=== PATIENT | female | born 1955 | race Caucasian/White ===

== ENCOUNTER 2018-08-17 16:07 | Inpatient (IN) ==
[2018-08-17] MEDS ORDERED: methylPREDNISolone 125 MG/2 ML VIAL IVP ONE (16:18)
[2018-08-17] MEDS ORDERED: Ipratropium/Albuterol Neb 3 ML IH ONE ×2 (16:18→16:19)
--- NOTE | 2018-08-17 16:22 | Emergency Department Note ---
Disposition Clinical Impression: COPD with exacerbation Disposition: Still a Patient General Adult HPI - General Stated complaint: WOODROW Time Seen by Provider: 08/17/18 16:15 Nursing Notes Reviewed: Yes Vital Signs Reviewed: Yes - History of Present Illness HPI Narrative: Attestation note: Patient was seen with the emergency medicine resident/nurse practitioner/physician assistant field hockey coach/transitional resident/medical student: Dr. Niko Johnson I have personally performed a face to face evaluation on this patient. I have reviewed and agree with history and physical examination patient management and disposition. Briefly the salient points of the case are as follows: 63-year-old female history of COPD he is on BiPAP at home O2 comes in with several days of increasing cough shortness of breath sputum and fevers. She is very type and satting 97% on supplemental oxygen patient is getting triple DuoNeb BiPAP screening labs EKG chest x-ray IV steroids. Disposition pending however admission highly anticipated. Providing 45 minutes of critical care service for this patient. - Related Data Allergies Allergy/AdvReac Type Severity Reaction Status Date / Time acetaminophen [From Percocet] AdvReac Hives Verified 02/02/18 10:14 ondansetron [From Zofran] AdvReac Hives Verified 02/02/18 10:14 oxycodone [From Percocet] AdvReac Hives Verified 02/02/18 10:14 promethazine [From Phenergan] AdvReac Hives Verified 02/02/18 10:14 Past Medical History - Past Medical History Medical history: Reports: arthritis, asthma, cancer, COPD, glaucoma, hypertension, migraine Surgical history: Reports: breast surgery, hysterectomy, orthopedic, other Psychiatric history: Reports: depression - Social History Smoking Status: Former smoker Alcohol use: Reports: none Drug use: Reports: none
[2018-08-17] MEDS ORDERED: *HR* Midazolam HCl 2 MG/2 ML VIAL IVP ONE ×2 (16:42→18:35)
--- NOTE | 2018-08-17 16:42 | Emergency Department Note ---
Disposition Clinical Impression: COPD with exacerbation Disposition: Still a Patient General Adult HPI - General Stated complaint: WOODROW Time Seen by Provider: 08/17/18 16:15 Nursing Notes Reviewed: Yes Vital Signs Reviewed: Yes - History of Present Illness HPI Narrative: 63 year old female presents emergency department with concern for shortness of breath. Patient has history COPD and reported asthma. She comes in with a few hours of shortness of breath. Patient states that she is very tight. She also reports cough and sputum production. She states that she feels similar to when she had pneumonia in the past. - Related Data Home Medications Medication Instructions Recorded Confirmed Acetylcysteine 600 mg PO DAILY 08/17/18 08/17/18 [F-[id number]-Cysteine] Albuterol Sulfate [Ventolin Hfa] 2 puff IH Q4H PRN 08/17/18 08/17/18 Amlodipine Besylate 10 mg PO DAILY 08/17/18 08/17/18 Calcium Carbonate [Calcium] 600 mg PO DAILY 08/17/18 08/17/18 Fluticasone Propionate Nasal 1 spr NS DAILY PRN 08/17/18 08/17/18 [Flonase] Glucosamine HCl 500 mg PO DAILY 08/17/18 08/17/18 Ipratropium/Albuterol Neb [Duoneb] 3 ml IH Q6HR PRN 08/17/18 08/17/18 Lisinopril [Zestril] 10 mg PO DAILY 08/17/18 08/17/18 Mometasone Furoate [Asmanex Hfa] 2 puff IH BID 08/17/18 08/17/18 Montelukast [Singulair] 10 mg PO HS 08/17/18 08/17/18 Multivitamin [One-Daily 1 tab PO DAILY 08/17/18 08/17/18 Multi-Vitamin] Olodaterol HCl [Striverdi Respimat] 2 puff IH DAILY 08/17/18 08/17/18 Sertraline [Zoloft] 100 mg PO DAILY 08/17/18 08/17/18 Tizanidine HCl 2 mg PO Q8H PRN 08/17/18 08/17/18 predniSONE [PredniSONE] 20 mg PO DAILY 08/17/18 08/17/18 Allergies Allergy/AdvReac Type Severity Reaction Status Date / Time acetaminophen [From Percocet] AdvReac Hives Verified 08/17/18 17:35 ondansetron [From Zofran] AdvReac Hives Verified 08/17/18 17:35 oxycodone [From Percocet] AdvReac Hives Verified 08/17/18 17:35 promethazine [From Phenergan] AdvReac Hives Verified 08/17/18 17:35 All systems ED: reviewed and negative except as stated. Review of Systems: As Per HPI Constitutional: Reports: fever Cardiovascular: Denies: chest pain Respiratory: Reports: dyspnea, wheezes, sputum production Gastrointestinal: Denies: abdominal pain, nausea, vomiting Musculoskeletal: Denies: back pain Integumentary: Denies: rash Neurological: Denies: headache Past Medical History - Past Medical History Attestation: Yes The following information was validated with the patient. Medical history: Reports: arthritis, asthma, cancer, COPD, glaucoma, hypertension, migraine Surgical history: Reports: breast surgery, hysterectomy, orthopedic, other Psychiatric history: Reports: depression - Social History Smoking Status: Former smoker Alcohol use: Reports: none Drug use: Reports: none Physical Exam - General Limitations: no limitations General appearance: alert, other (Patient appears in moderate respiratory distress) - Head Head exam: normocephalic - Eye Eye exam: Present: EOMI - ENT ENT exam: mucous membranes moist - Neck Neck exam: Present: trachea midline - Chest Chest inspection: Present: symmetric chest wall rise - Respiratory Respiratory exam: Present: normal lung sounds bilaterally, wheezes, accessory muscle use, prolonged expiratory phase - Cardiovascular Cardiovascular exam: Present: normal rhythm, tachycardia, normal heart sounds - Abdominal Exam Abdominal exam: Present: soft, Non-Tender. Absent: distention, guarding, rebound, rigidity - Extremities Exam Extremities exam: Present: normal capillary refill - Back Exam Back exam: Present: full ROM - Neurological Exam Neurological exam: Present: alert, oriented X3 - Psychiatric Psychiatric exam: Present: normal affect, normal mood - Skin Skin exam: Present: warm, dry, intact, normal color. Absent: rash Course Vital Signs Temperature 98.7 F 08/17/18 16:36 Pulse Rate 122 08/17/18 16:36 Respiratory Rate 24 08/17/18 16:36 Blood Pressure 164/114 08/17/18 16:36 O2 Sat by Pulse Oximetry 98 08/17/18 16:36 Temperature 98.7 F 08/17/18 16:36 Pulse Rate 115 08/17/18 20:58 Respiratory Rate 29 08/17/18 20:44 Blood Pressure 165/112 08/17/18 20:58 O2 Sat by Pulse Oximetry 96 08/17/18 20:58 Oxygen Delivery Oxygen Delivery Bipap Medical Decision Making - MDM Narrative Medical decision making narrative: 63-year-old female presents emergency department with concern for COPD exacerbation. Patient initially placed on BiPAP and she was having moderate respiratory distress. Does not given DuoNeb steroids. Patient did well with this. Stated she had improved aeration of her lungs. Patient was persistent tachycardia throughout her stay. Some of this can be attributed to albuterol she was given. Patient's BNP was normal. Her troponin was normal. No ischemic ST changes on the EKG. Chest x-ray did not reveal any evidence of pneumonia however, patient was having cough and sputum production with a mildly elevated white count. She was given Levaquin. Patient be admitted inpatient. She was comfortable on the BiPAP at that time. We did give a bolus of normal saline. She was mildly tachycardic but stable. - Lab Data Result diagrams: 08/17/18 16:35 08/17/18 16:35 Lab Results 08/17/18 08/17/18 08/17/18 Range/Units 16:35 16:35 16:35 WBC 12.6 H (4.3-11.1) K/mcL RBC 4.47 (3.82-4.97) M/mcL Hgb 14.2 (11.5-15.4) g/dL Hct 44.3 (35.3-44.9) % MCV 99.1 (83.0-100.0) fL MCH 31.8 (28.0-33.3) pg MCHC 32.1 (31.6-35.5) g/dL RDW 13.6 (11.5-14.5) % Plt Count 221 (140-400) K/mcL MPV 11.0 (9.4-12.4) fL Immature Gran % 1.0 (0-4) % Seg Neutrophils % 78.9 % Lymphocytes % 13.3 % Monocytes % 5.4 % Eosinophils % 0.9 % Basophils % 0.5 % Neutrophils # 10.0 H (1.6-8.9) K/mcL Lymphocytes # 1.7 (0.6-4.6) K/mcL Monocytes # 0.7 (0.0-1.3) K/mcL Eosinophils # 0.1 (0.0-0.6) K/mcL Basophils # 0.1 (0.0-0.2) K/mcL Sodium 140 (136-145) mEq/L Potassium 4.0 (3.5-5.1) mEq/L Chloride 99 (98-107) mEq/L Carbon Dioxide 26 (23-29) mEq/L BUN 12 (8-23) mg/dL Creatinine 0.48 L (0.60-1.20) mg/dL Est GFR ( Amer) > 60 (> 60) Est GFR (Non-Af Amer) > 60 (> 60) BUN/Creatinine Ratio 25 (6-26) Glucose 173 H (70-105) mg/dL Calculated Osmolality 294 (280-300) Lactic Acid 2.1 (0.5-2.2) mmol/L Calcium 9.6 (8.6-10.3) mg/dL Troponin I < 0.03 (< 0.04) ng/mL B-Natriuretic Peptide (Less than 100) pg/mL 08/17/18 Range/Units 16:35 WBC (4.3-11.1) K/mcL RBC (3.82-4.97) M/mcL Hgb (11.5-15.4) g/dL Hct (35.3-44.9) % MCV (83.0-100.0) fL MCH (28.0-33.3) pg MCHC (31.6-35.5) g/dL RDW (11.5-14.5) % Plt Count (140-400) K/mcL MPV (9.4-12.4) fL Immature Gran % (0-4) % Seg Neutrophils % % Lymphocytes % % Monocytes % % Eosinophils % % Basophils % % Neutrophils # (1.6-8.9) K/mcL Lymphocytes # (0.6-4.6) K/mcL Monocytes # (0.0-1.3) K/mcL Eosinophils # (0.0-0.6) K/mcL Basophils # (0.0-0.2) K/mcL Sodium (136-145) mEq/L Potassium (3.5-5.1) mEq/L Chloride (98-107) mEq/L Carbon Dioxide (23-29) mEq/L BUN (8-23) mg/dL Creatinine (0.60-1.20) mg/dL Est GFR ( Amer) (> 60) Est GFR (Non-Af Amer) (> 60) BUN/Creatinine Ratio (6-26) Glucose (70-105) mg/dL Calculated Osmolality (280-300) Lactic Acid (0.5-2.2) mmol/L Calcium (8.6-10.3) mg/dL Troponin I (< 0.04) ng/mL B-Natriuretic Peptide 35 (Less than 100) pg/mL
[2018-08-17 16:56] LABS: Basophils # 0.1 K/mcL (0.0-0.2); Basophils % 0.5 %; Eosinophils # 0.1 K/mcL (0.0-0.6); Eosinophils % 0.9 %; Hematocrit 44.3 % (35.3-44.9); Hemoglobin 14.2 g/dL (11.5-15.4); Lymphocytes # 1.7 K/mcL (0.6-4.6); Lymphocytes % 13.3 %; Mean Corpuscular HGB Conc 32.1 g/dL (31.6-35.5); Mean Corpuscular Hemoglobin 31.8 pg (28.0-33.3); Mean Corpuscular Volume 99.1 fL (83.0-100.0); Monocytes # 0.7 K/mcL (0.0-1.3); Monocytes % 5.4 %; Platelet Count 221 K/mcL (140-400); Red Blood Count 4.47 M/mcL (3.82-4.97); Red Cell Distribution Width 13.6 % (11.5-14.5); Segmented Neutrophils % 78.9 %
[2018-08-17 17:19] LABS: BUN/Creatinine Ratio 25 (6-26); Blood Urea Nitrogen 12 mg/dL (8-23); Calcium 9.6 mg/dL (8.6-10.3); Carbon Dioxide 26 mEq/L (23-29); Chloride 99 mEq/L (98-107); Glucose 173 mg/dL (70-105); Osmolality,Calculated 294 (280-300); Sodium 140 mEq/L (136-145); Troponin I < 0.03 ng/mL (< 0.04); eGFR For Non-African Americans > 60 (> 60)
[2018-08-17] MEDS ORDERED: 0.9 % Sodium Chloride 1,000 ML IVC ONE (18:35)
[2018-08-17 22:56] LABS: ABG Base Excess 4 mEq/L (-2 to 3); ABG HCO3 31 mEq/L (21-27); ABG Oxygen Saturation 98 % (95-98); ABG PCO2 54 mmHg (35-45); ABG PH 7.36 pH Units (7.32-7.45); ABG PO2 107 mmHg (85-104); ABG TCO2 32 mEq/L (20-26); Blood Gas Modality BiLevel; Blood Gas PEEP 8 cm H2O
[2018-08-17] MEDS ORDERED: Naloxone 0.4 MG/ML INJ IVP PRN (23:16)
[2018-08-17] MEDS ORDERED: Albuterol 2.5 MG/3 ML NEBULIZER IH PRN (23:18)
[2018-08-17] MEDS ORDERED: Fluticasone Propionate Nasal 50 MCG/SPRAY BOTTLE NS PRN (23:22)
[2018-08-17] MEDS: Acetylcysteine 10% 2 ML INHSOL IH SCH (23:46)
[2018-08-17] MEDS: Ipratropium/Albuterol Neb 3 ML IH SCH (23:47)
[2018-08-17] MEDS: 0.9 % Sodium Chloride w KCl 20 MEQ/1,000 ML MLS IVC SCH (23:51)
[2018-08-17] MEDS: Ibuprofen 400 MG TABLET PO PRN (23:51)
[2018-08-17] MEDS: methylPREDNISolone 125 MG/2 ML VIAL IVP SCH (23:51)
[2018-08-17] MEDS: Levofloxacin 750 MG/150 ML 750 MG/150 ML BAG IVPB SCH (23:52)
--- NOTE | 2018-08-18 01:04 | Internal Med History&Physical ---
Date of Encounter: 08/17/18 Time of Encounter: 22:50 Internal Medicine - H&P: HPI Chief complaint: SOB, cough, wheeze Admitted From: Emergency Dept Plans for Post Hospital Care: Home History of present illness: Ms. Brandon is a 63 year old female who presents to the ER tonight complaining of profound dyspnea, coughing, wheezing, and respiratory distress. She came to ER where she was given aerosols and placed on BiPAP immediately for severe respiratory distress/failure. She improved on BiPAP and was subsequently admitted to hospitalist service for COPD exacerbation. Upon my assessment of the patient, she states her symptoms started yesterday and progressively worsened throughout the day today. She has a history of COPD but has never been hospitalized for it before. She is a former smoker and quit about 8 years ago. She denies any fevers, chills, night sweats, vomiting, or diarrhea. She has had multiple ill contacts, however. Although she is quite wheezy and dyspneic, she states she feels much better with BiPAP and after her initial aerosols. Past Med Surg Social Fam HX - Past Medical History Attestation: Yes The following information was validated with the patient. Source: patient, old records reviewed Medical history: arthritis, asthma, cancer, COPD, glaucoma, hypertension, migraine Additional medical history: skin cancer Psychiatric history: depression - Past Surgical History Surgical History: breast surgery, hysterectomy, orthopedic, other Additional surgical history: tosillectomy - Social History Smoking Status: Former smoker Alcohol use: none Drug use: none Current living situation: Home, With Family Activity Level: Independent ambulation Recent Out of Country Travel Within the Last 8 Weeks: No - Family History Mother History Unknown: Yes Father Hx Family Respiratory Disorders: Yes Hx Family Cancer: Yes Internal Medicine - H&P: Meds Acetylcysteine [V-Qgeccp-r-Cysteine] 600 mg PO DAILY 08/17/18 [History] Albuterol Sulfate [Ventolin Hfa] 2 puff IH Q4H PRN 08/17/18 [History] Amlodipine Besylate 10 mg PO DAILY 08/17/18 [History] Calcium Carbonate [Calcium] 600 mg PO DAILY 08/17/18 [History] Fluticasone Propionate Nasal [Flonase] 1 spr NS DAILY PRN 08/17/18 [History] Glucosamine HCl 500 mg PO DAILY 08/17/18 [History] Ipratropium/Albuterol Neb [Duoneb] 3 ml IH Q6HR PRN 08/17/18 [History] Lisinopril [Zestril] 10 mg PO DAILY 08/17/18 [History] Mometasone Furoate [Asmanex Hfa] 2 puff IH BID 08/17/18 [History] Montelukast [Singulair] 10 mg PO HS 08/17/18 [History] Multivitamin [One-Daily Multi-Vitamin] 1 tab PO DAILY 08/17/18 [History] Olodaterol HCl [Striverdi Respimat] 2 puff IH DAILY 08/17/18 [History] Sertraline [Zoloft] 100 mg PO DAILY 08/17/18 [History] Tizanidine HCl 2 mg PO Q8H PRN 08/17/18 [History] predniSONE [PredniSONE] 20 mg PO DAILY 08/17/18 [History] Allergy/AdvReac Type Severity Reaction Status Date / Time acetaminophen [From Percocet] AdvReac Hives Verified 08/17/18 17:35 ondansetron [From Zofran] AdvReac Hives Verified 08/17/18 17:35 oxycodone [From Percocet] AdvReac Hives Verified 08/17/18 17:35 promethazine [From Phenergan] AdvReac Hives Verified 08/17/18 17:35 - Constitutional Constitutional: fatigue, no chills, no fever(s), no night sweats - EENT Eyes: no blurry vision, no change in vision Ears: no ear pain, no tinnitus Nose, mouth and throat: no nasal congestion, no sinus pressure, no sore throat - Cardiovascular Cardiovascular ROS IM: dyspnea, no chest pain, no syncope - Respiratory Respiratory: cough, dyspnea, wheezing, chest congestion, change in phlegm color, no hemoptysis, no excessive phlegm production - Gastrointestinal Gastrointestinal: no abdominal pain, no diarrhea, no hematemesis, no hematochezia, no melena, no vomiting - Genitourinary Genitourinary: no dysuria, no flank pain, no hematuria - Musculoskeletal Musculoskeletal ROS IM: no arthralgias, no back pain - Integumentary Integumentary IM: no rash, no jaundice - Neurological Neurological ROS: no dizziness, no focal weakness, no frequent falls, no headache(s) - Psychiatric Psychiatric: no anxiety, no depression - Endocrine Endocrine IM: no cold intolerance, no heat intolerance, no polydipsia, no polyuria - Allergic/Immunologic Allergic/Immunologic: no GI upset with certain foods - Constitutional Vitals: Temp Pulse Resp BP Pulse Ox 98.7 F 99 21 166/97 100 08/17/18 16:36 08/17/18 23:27 08/17/18 23:52 08/17/18 23:27 08/17/18 23:52 General appearance: Present: cooperative, A&O X 3, pleasant, answers questions appropriately Exam: in moderate respiratory distress, even on BiPap - Head Head exam: Present: atraumatic, normal inspection - Eye Eye exam: Present: EOMI, PERRL. Absent: scleral icterus Pupils: Present: normal accommodation - ENT ENT exam: Present: mucous membranes dry, normal exam, normal oropharynx - Neck Neck exam general surgery: Present: full ROM, supple, trachea midline. Absent: lymphadenopathy, tenderness, nuchal rigidity, thyromegaly - Respiratory Respiratory exam: Present: accessory muscle use, prolonged expiratory phase, respiratory distress, wheezes, tachypnea. Absent: chest wall tenderness, rales, rhonchi - Cardiovascular Cardiovascular exam: Present: distant heart sounds, RRR, +S1, +S2, tachycardia. Absent: diastolic murmur, systolic murmur - GI/Abdominal GI/Abdominal exam: Present: normal bowel sounds, soft. Absent: guarding, hepatomegaly, mass, rebound, splenomegaly, tenderness - Extremities Exam Extremities exam: Present: full ROM, normal capillary refill, warm, radial pulses palpable and symmetrical. Absent: calf tenderness, joint swelling, pedal edema, tenderness - Back Exam Back exam: Absent: CVA tenderness (L), CVA tenderness (R) - Neurological Exam Neurological exam: Present: alert, CN II-XII intact, oriented X3, no focal deficits, strengths equal and symetr throughout - Psychiatric Psychiatric exam: Present: normal affect, normal mood - Skin Skin exam: Present: dry, intact, warm Internal Med - H&P Results - Labs CBC & Chem 7: 08/17/18 16:35 08/17/18 16:35 Labs: Short CBC 08/17/18 Range/Units 16:35 WBC 12.6 H (4.3-11.1) K/mcL Hgb 14.2 (11.5-15.4) g/dL Hct 44.3 (35.3-44.9) % Plt Count 221 (140-400) K/mcL Neutrophils # 10.0 H (1.6-8.9) K/mcL BMP 08/17/18 16:35 Sodium 140 Potassium 4.0 Chloride 99 Carbon Dioxide 26 BUN 12 Creatinine 0.48 L Glucose 173 H Calcium 9.6 Cardiac Enzymes 08/17/18 Range/Units 16:35 Troponin I < 0.03 (< 0.04) ng/mL - ABG Interpretation ABG results: 08/17/18 22:54 ABG pH 7.36 ABG pCO2 54 H ABG pO2 107 H ABG HCO3 31 H ABG Total CO2 32 H ABG O2 Saturation 98 ABG Base Excess 4 H - EKG Data -: EKG Interpreted by Myself - EKG Data Prior EKG available for review: no EKG comments: 08/18/18 01:20 NSR; no acute ST-T changes - Impressions ITS Impressions Chest X-Ray 08/17/18 16:18 IMPRESSION: No acute cardiopulmonary disease. D/ / Rohit Marvin MD / Rohit Marvin MD Interpreting Provider: Rohit Marvin MD - Diagnostic Studies Chest x-ray Status: image reviewed by me (hyperinflated) - Assessment and Plan (1) Acute hypercapnic respiratory failure Current Visit: Yes Status: Acute Assessment and plan: 1. Will continue BiPap and oxygen overnight. 2. ABG ordered tonight. WIll follow clinically and repeat as necessary. 3. Attempt to wean off BiPap in AM. 4. If she decompensates, she will need ETT and mechanical ventilation. 5. Monitor on telemetry and pulse oximetry. (2) COPD with exacerbation Current Visit: Yes Status: Acute Assessment and plan: 1. Will order high dose IV steroids, scheduled and PRN aerosols, and antibiotics. 2. Blood cultures obtained in ER. 3. Will order sputum culture. 4. BiPap and respiratory support as above. (3) DVT prophylaxis Current Visit: Yes Status: Acute Assessment and plan: 1. Heparin SQ.
[2018-08-18] MEDS: Ipratropium/Albuterol Neb 3 ML IH SCH ×6 (04:36→23:38)
[2018-08-18] MEDS: Acetylcysteine 10% 2 ML INHSOL IH SCH ×6 (04:36→23:38)
[2018-08-18] MEDS: *HR* Heparin 5,000 UNIT/ML VIAL SQ SCH ×3 (05:00→22:43)
[2018-08-18] MEDS: methylPREDNISolone 125 MG/2 ML VIAL IVP SCH ×3 (05:00→17:51)
[2018-08-18 07:31] LABS: Basophils % 0.2 %; Hematocrit 40.6 % (35.3-44.9); Hemoglobin 13.4 g/dL (11.5-15.4); Immature Granulocytes % 1.3 % (0-4); Lymphocytes # 0.5 K/mcL (0.6-4.6); Lymphocytes % 3.6 %; Mean Corpuscular Hemoglobin 32.4 pg (28.0-33.3); Mean Corpuscular Volume 98.1 fL (83.0-100.0); Mean Platelet Volume 10.5 fL (9.4-12.4); Monocytes # 0.1 K/mcL (0.0-1.3); Monocytes % 0.8 %; Neutrophils # 12.1 K/mcL (1.6-8.9); Platelet Count 199 K/mcL (140-400); Red Blood Count 4.14 M/mcL (3.82-4.97); Red Cell Distribution Width 13.7 % (11.5-14.5); Segmented Neutrophils % 94.1 %
[2018-08-18 07:40] LABS: INR 1.1; Prothrombin Time 12.9 Seconds (9.4-12.1)
[2018-08-18 07:43] LABS: Activated Partial Thrombo Time 28.5 Seconds (26.0-36.0)
[2018-08-18 07:51] LABS: Alanine Aminotransferase 42 Units/L (7-52); Albumin 4.3 g/dL (3.5-5.7); Albumin/Globulin Ratio 1.5 (1.1-2.2); Alkaline Phosphatase 73 Units/L (34-104); Aspartate Amino Transferase 31 Units/L (13-39); BUN/Creatinine Ratio 23 (6-26); Bilirubin,Total 0.5 mg/dL (0.3-1.0); Blood Urea Nitrogen 10 mg/dL (8-23); Carbon Dioxide 24 mEq/L (23-29); Chloride 103 mEq/L (98-107); Globulin 2.9 g/dL (2.4-3.5); Glucose 271 mg/dL (70-105); Magnesium 2.1 mg/dL (1.6-2.6); Osmolality,Calculated 293 (280-300); Potassium 3.9 mEq/L (3.5-5.1); Sodium 137 mEq/L (136-145); Total Protein 7.2 g/dL (6.4-8.9); eGFR For Non-African Americans > 60 (> 60)
[2018-08-18] MEDS: MOMETASONE FUROATE 100 mcg Inhaler IH SCH ×2 (08:01→19:59)
[2018-08-18] MEDS: amLODIPine 5 MG TABLET PO SCH (08:40)
[2018-08-18] MEDS: Ibuprofen 400 MG TABLET PO PRN (08:41)
[2018-08-18] MEDS: Multivit/Ca/Min/Fe/FA 1 TAB TABLET PO SCH (08:41)
[2018-08-18] MEDS: Acyclovir 200 MG CAPSULE PO SCH (11:39)
--- NOTE | 2018-08-18 11:41 | Internal Med Progress Note ---
Hospitalist Progress Note - Encounter Date of Encounter: 08/18/18 Time of Encounter: 11:20 - Subjective Interval History: Patient seen and examined this morning at bedside. No acute overnight events. Denies new complaints. Breathing improved. Afebrile. Denies any chest pain abdominal pain bowel or urinary complaints. - Exam Vitals: Temp Pulse Resp BP Pulse Ox 96.8 F L 99 18 163/98 100 08/18/18 07:08 08/18/18 07:08 08/18/18 08:00 08/18/18 07:08 08/18/18 08:00 Exam: General: In no acute distress. Respiratory exam: mild accessory muscle use. Diffuse b/l wheezes Cardiovascular exam: RRR, +S1, +S2. no murmur, gallop, rubs. GI/Abdominal exam: Non-tender, Non-distended, soft, no peritoneal signs. Extremities exam: no pedal edema, pulses palpable in b/l lower extremities. no calf tenderness Neurological exam: CN II-XII intact, AO X3, no focal deficits. Skin exam: No skin rash - Assessment and Plan (1) COPD with exacerbation Current Visit: Yes Status: Acute (2) Acute hypercapnic respiratory failure Current Visit: Yes Status: Acute (3) DVT prophylaxis Current Visit: Yes Status: Acute - Summary of Assessment and Plan Summary of Assessment and Plan: Acute hypercapnic respiratory failure - secondary to COPD exacerbation - c/w prn BiPap and supplemental oxygen. Uses CPAP at home for Sleep apnea - improved since admission COPD with exacerbation - c/w steroids taper, duonebs maia, levofloxacin - c/w home theophylline, singulair - f/u Blood cultures and sputum culture. Obtain respiratory infectious panel - BiPap and oxygen as above. - Will qualify for bipap on discharge. HTN - c/w amlodipine, lisinopril and prn hydralazine DVT prophylaxis - Heparin SQ. - Time Spent with Patient Total time spent is greater than 50% in coordination of care (as documented) at patient's floor/unit and/or counseling patient: Internal Medicine: Result - Labs CBC & Chem 7: 08/18/18 07:18 08/18/18 07:18 Labs: Short CBC 08/17/18 08/18/18 Range/Units 16:35 07:18 WBC 12.6 H 12.9 H (4.3-11.1) K/mcL Hgb 14.2 13.4 (11.5-15.4) g/dL Hct 44.3 40.6 (35.3-44.9) % Plt Count 221 199 (140-400) K/mcL Neutrophils # 10.0 H 12.1 H (1.6-8.9) K/mcL BMP 08/17/18 08/18/18 16:35 07:18 Sodium 140 137 Potassium 4.0 3.9 Chloride 99 103 Carbon Dioxide 26 24 BUN 12 10 Creatinine 0.48 L 0.44 L Glucose 173 H 271 H Calcium 9.6 9.0 Cardiac Enzymes 08/17/18 Range/Units 16:35 Troponin I < 0.03 (< 0.04) ng/mL Liver Function 08/18/18 Range/Units 07:18 Total Bilirubin 0.5 (0.3-1.0) mg/dL AST 31 (13-39) Units/L ALT 42 (7-52) Units/L Alkaline Phosphatase 73 (34-104) Units/L Albumin 4.3 (3.5-5.7) g/dL - ABG Interpretation ABG results: ABG ABG pH 7.36 pH Units (7.32-7.45) 08/17/18 22:54 ABG pCO2 54 mmHg (35-45) H 08/17/18 22:54 ABG pO2 107 mmHg (85-104) H 08/17/18 22:54 ABG O2 Saturation 98 % (95-98) 08/17/18 22:54 PT/INR, D-dimer PT 12.9 Seconds (9.4-12.1) H 08/18/18 07:18 - Impressions Impressions Chest X-Ray 08/17/18 16:18 IMPRESSION: No acute cardiopulmonary disease. D/ / Rohit Marvin MD / Rohit Marvin MD Interpreting Provider: Rohit Marvin MD Consult Discharge Plan - Plan Referrals: Hilary Ko, [employer]ICER [Primary Care Provider] -
[2018-08-18] MEDS: Gabapentin 300 MG CAPSULE PO SCH ×2 (14:29→22:42)
[2018-08-18] MEDS: Acetaminophen 325 MG TABLET PO PRN (16:46)
[2018-08-18 17:08] LABS: Adenovirus Not Detected (Not Detect); Bordetella Pertussis Not Detected (Not Detect); Chlamydophila pneumoniae Not Detected (Not Detect); Coronavirus 229E Not Detected (Not Detect); Coronavirus HKU1 Not Detected (Not Detect); Coronavirus NL63 Not Detected (Not Detect); Coronavirus OC43 Not Detected (Not Detect); Human Metapneumovirus Not Detected (Not Detect); Human Rhinovirus/Enterovirus Not Detected (Not Detect); Influenza A Subtype 2009 H1 Not Detected (Not Detect); Influenza A Untypeable Not Detected (Not Detect); Influenza B Not Detected (Not Detect); Mycoplasma pneumoniae Not Detected (Not Detect); Parainfluenza Virus 1 Not Detected (Not Detect); Parainfluenza Virus 2 Not Detected (Not Detect); Parainfluenza Virus 3 Not Detected (Not Detect); Parainfluenza Virus 4 Not Detected (Not Detect); Respiratory Syncytial Virus Not Detected (Not Detect)
[2018-08-18] MEDS ORDERED: *HR* LORazepam 0.5 MG TABLET PO ONE (23:01)
[2018-08-19] MEDS: methylPREDNISolone 125 MG/2 ML VIAL IVP SCH ×4 (00:53→18:24)
[2018-08-19] MEDS: Levofloxacin 750 MG/150 ML 750 MG/150 ML BAG IVPB SCH (00:53)
[2018-08-19] MEDS: Ipratropium/Albuterol Neb 3 ML IH SCH ×4 (04:20→15:00)
[2018-08-19] MEDS: Acetylcysteine 10% 2 ML INHSOL IH SCH ×5 (04:20→20:22)
[2018-08-19] MEDS: *HR* Heparin 5,000 UNIT/ML VIAL SQ SCH ×3 (06:17→21:27)
[2018-08-19] MEDS: MOMETASONE FUROATE 100 mcg Inhaler IH SCH ×2 (07:37→20:22)
--- NOTE | 2018-08-19 09:44 | Electrocardiograph Report ---
[place] [id number] Test Date: 2018-08-17 Pat Name: Isela Brandon Department: [id number] Room: 2N0 Gender: F Quality Assurance Lab Technician: : [id number] Requested By: [employer] Order Number: [id number] Reading MD: Iraj Staton Measurements Intervals [place] Rate: 125 P: 81 CA: 152 QRS: 72 QRSD: 80 T: 73 QT: 307 QTc: 443 Interpretive Statements Sinus tachycardia Electronically Signed On 08-19-2018 9:42:57 EDT by Iraj Staton
[2018-08-19] MEDS: Acyclovir 200 MG CAPSULE PO SCH (10:18)
[2018-08-19] MEDS: Gabapentin 300 MG CAPSULE PO SCH ×3 (10:18→21:27)
[2018-08-19] MEDS: Multivit/Ca/Min/Fe/FA 1 TAB TABLET PO SCH (10:19)
[2018-08-19] MEDS: amLODIPine 5 MG TABLET PO SCH (10:19)
--- NOTE | 2018-08-19 11:35 | Internal Med Progress Note ---
Hospitalist Progress Note - Encounter Date of Encounter: 08/19/18 Time of Encounter: 09:54 - Subjective Interval History: Patient seen and examined this morning but. No acute overnight events. Breathing gradually improving. No fever chills nausea vomiting or diarrhea. - Exam Vitals: Temp Pulse Resp BP Pulse Ox 97.7 F 95 18 141/85 94 08/19/18 07:16 08/19/18 07:16 08/19/18 11:13 08/19/18 07:16 08/19/18 11:13 Exam: General: In no acute distress. Respiratory exam: no accessory muscle use. Improved air entry. minimal b/l rhonchi. Cardiovascular exam: RRR, +S1, +S2. no murmur, gallop, rubs. GI/Abdominal exam: Non-tender, Non-distended, soft, no peritoneal signs. Extremities exam: no pedal edema, pulses palpable in b/l lower extremities. no calf tenderness Neurological exam: CN II-XII intact, AO X3, no focal deficits. Skin exam: No skin rash - Assessment and Plan (1) COPD with exacerbation Current Visit: Yes Status: Acute (2) Acute hypercapnic respiratory failure Current Visit: Yes Status: Acute (3) DVT prophylaxis Current Visit: Yes Status: Acute - Summary of Assessment and Plan Summary of Assessment and Plan: Acute hypercapnic respiratory failure - secondary to COPD exacerbation - c/w prn BiPap and supplemental oxygen. Uses CPAP at home for Sleep apnea - improving. COPD with exacerbation - c/w steroids taper, duonebs maia, levofloxacin - c/w home theophylline, singulair - Blood cultures NGTD and sputum culture not available. Respiratory infectious panel negative - prn BiPap and oxygen as above. - Will qualify for bipap before discharge. HTN - c/w amlodipine, lisinopril and prn hydralazine DVT prophylaxis - Heparin SQ. - Time Spent with Patient Total time spent is greater than 50% in coordination of care (as documented) at patient's floor/unit and/or counseling patient: Internal Medicine: Result - Labs CBC & Chem 7: 08/18/18 07:18 08/18/18 07:18 - ABG Interpretation ABG results: ABG ABG pH 7.36 pH Units (7.32-7.45) 08/17/18 22:54 ABG pCO2 54 mmHg (35-45) H 08/17/18 22:54 ABG pO2 107 mmHg (85-104) H 08/17/18 22:54 ABG O2 Saturation 98 % (95-98) 08/17/18 22:54 PT/INR, D-dimer PT 12.9 Seconds (9.4-12.1) H 08/18/18 07:18 Consult Discharge Plan - Plan Referrals: Hilary Ko, [employer] DEVELOPER [Primary Care Provider] -
[2018-08-19] MEDS ORDERED: *HR* Metoprolol 5 MG/5 ML VIAL IVP ONE (18:13)
[2018-08-19] MEDS: Levalbuterol Neb 1.25 MG/3 ML IH SCH (20:22)
[2018-08-20] MEDS: Levofloxacin 750 MG/150 ML 750 MG/150 ML BAG IVPB SCH (00:02)
[2018-08-20] MEDS: 0.9 % Sodium Chloride w KCl 20 MEQ/1,000 ML MLS IVC SCH (02:09)
[2018-08-20] MEDS: Acetylcysteine 10% 2 ML INHSOL IH SCH ×4 (03:52→22:08)
[2018-08-20] MEDS: Levalbuterol Neb 1.25 MG/3 ML IH SCH ×4 (03:52→22:08)
[2018-08-20] MEDS: *HR* Heparin 5,000 UNIT/ML VIAL SQ SCH ×3 (05:39→20:18)
[2018-08-20] MEDS: methylPREDNISolone 125 MG/2 ML VIAL IVP SCH (05:41)
[2018-08-20] MEDS: Multivit/Ca/Min/Fe/FA 1 TAB TABLET PO SCH (08:34)
[2018-08-20] MEDS: Gabapentin 300 MG CAPSULE PO SCH ×3 (08:34→20:18)
[2018-08-20] MEDS: Acyclovir 200 MG CAPSULE PO SCH (08:35)
[2018-08-20] MEDS: amLODIPine 5 MG TABLET PO SCH (08:35)
[2018-08-20] MEDS: MOMETASONE FUROATE 100 mcg Inhaler IH SCH ×2 (10:24→22:08)
--- NOTE | 2018-08-20 11:15 | Internal Med Progress Note ---
Hospitalist Progress Note - Encounter Date of Encounter: 08/20/18 Time of Encounter: 10:36 - Subjective Interval History: Patient seen and examined this morning in bedside. No acute overnight events. No telemetry events. Breathing minimally improved than yesterday. He becomes short of breath with minimal ambulation. - Exam Vitals: Temp Pulse Resp BP Pulse Ox 97.7 F 85 20 168/95 94 08/20/18 07:18 08/20/18 07:18 08/20/18 07:18 08/20/18 07:18 08/20/18 08:37 Exam: General: In no acute distress. Respiratory exam: mild accessory muscle use. good air entry. b/l rhonchi diffuse Cardiovascular exam: RRR, +S1, +S2. no murmur, gallop, rubs. GI/Abdominal exam: Non-tender, Non-distended, soft, no peritoneal signs. Extremities exam: no pedal edema, pulses palpable in b/l lower extremities. no calf tenderness Neurological exam: CN II-XII intact, AO X3, no focal deficits. Skin exam: No skin rash - Assessment and Plan (1) COPD with exacerbation Current Visit: Yes Status: Acute (2) Acute hypercapnic respiratory failure Current Visit: Yes Status: Acute (3) DVT prophylaxis Current Visit: Yes Status: Acute - Summary of Assessment and Plan Summary of Assessment and Plan: Acute hypercapnic respiratory failure - secondary to COPD exacerbation - c/w prn BiPap and supplemental oxygen. Uses CPAP at home for Sleep apnea - improving gradually. c/w copd treatment as before COPD with exacerbation - c/w steroids taper, levofloxacin. Duoneb changed to xopenex yesterday due to tachycardia. - home theophylline on hold for now given tachycardia. add ipratropium. c/w singulair and asmanex - Blood cultures NGTD and sputum culture not available. Respiratory infectious panel negative - prn BiPap and oxygen as above. - Will qualify for bipap before discharge. HTN - c/w amlodipine, lisinopril and prn hydralazine DVT prophylaxis - Heparin SQ. - Time Spent with Patient Total time spent is greater than 50% in coordination of care (as documented) at patient's floor/unit and/or counseling patient: Internal Medicine: Result - Labs CBC & Chem 7: 08/18/18 07:18 08/18/18 07:18 - ABG Interpretation ABG results: ABG ABG pH 7.36 pH Units (7.32-7.45) 08/17/18 22:54 ABG pCO2 54 mmHg (35-45) H 08/17/18 22:54 ABG pO2 107 mmHg (85-104) H 08/17/18 22:54 ABG O2 Saturation 98 % (95-98) 08/17/18 22:54 PT/INR, D-dimer PT 12.9 Seconds (9.4-12.1) H 08/18/18 07:18 Consult Discharge Plan - Plan Referrals: Hilary Ko, [employer] [Primary Care Provider] -
[2018-08-20] MEDS ORDERED: D5% in Water 1,000 ML IVC PRN (11:26)
[2018-08-20] MEDS ORDERED: Dextrose Gel 15 GM/37.5 ML TUBE PO PRN ×2 (11:26)
[2018-08-20] MEDS ORDERED: *HR* Dextrose 50 % in Water (Syg) 50 ML SYRINGE IVP PRN (11:26)
[2018-08-20] MEDS: Insulin LISPRO 300 UNITS/3 ML VIAL SQ SCH ×2 (14:09→23:24)
[2018-08-20] MEDS: Ipratropium Neb 0.5 MG NEBULIZER IH SCH ×2 (15:50→22:08)
[2018-08-20] MEDS ORDERED: Insulin LISPRO 300 UNITS/3 ML VIAL SQ SCH (21:00)
[2018-08-21] MEDS: Levalbuterol Neb 1.25 MG/3 ML IH SCH ×3 (04:07→16:00)
[2018-08-21] MEDS: Ipratropium Neb 0.5 MG NEBULIZER IH SCH ×3 (04:07→16:00)
[2018-08-21] MEDS: Acetylcysteine 10% 2 ML INHSOL IH SCH ×3 (04:07→16:00)
[2018-08-21] MEDS: Acetaminophen 325 MG TABLET PO PRN (05:12)
[2018-08-21] MEDS: *HR* Heparin 5,000 UNIT/ML VIAL SQ SCH ×2 (05:13→14:53)
[2018-08-21 07:28] LABS: Basophils % 0.1 %; Eosinophils # 0.1 K/mcL (0.0-0.6); Eosinophils % 0.8 %; Hematocrit 40.1 % (35.3-44.9); Hemoglobin 12.7 g/dL (11.5-15.4); Lymphocytes # 1.9 K/mcL (0.6-4.6); Lymphocytes % 18.6 %; Mean Corpuscular HGB Conc 31.7 g/dL (31.6-35.5); Mean Corpuscular Hemoglobin 31.8 pg (28.0-33.3); Mean Corpuscular Volume 100.3 fL (83.0-100.0); Mean Platelet Volume 10.7 fL (9.4-12.4); Monocytes # 0.7 K/mcL (0.0-1.3); Monocytes % 7.4 %; Neutrophils # 7.2 K/mcL (1.6-8.9); Platelet Count 201 K/mcL (140-400); Red Cell Distribution Width 14.2 % (11.5-14.5); Segmented Neutrophils % 72.1 %
[2018-08-21 07:41] LABS: BUN/Creatinine Ratio 40 (6-26); Blood Urea Nitrogen 20 mg/dL (8-23); Calcium 8.5 mg/dL (8.6-10.3); Carbon Dioxide 30 mEq/L (23-29); Chloride 101 mEq/L (98-107); Glucose 143 mg/dL (70-105); Osmolality,Calculated 295 (280-300); Potassium 3.6 mEq/L (3.5-5.1); Sodium 140 mEq/L (136-145); eGFR For Non-African Americans > 60 (> 60)
[2018-08-21 07:46] VITALS: BP 145/78
[2018-08-21] MEDS ORDERED: levoFLOXacin 750 MG TABLET PO SCH (09:00)
[2018-08-21] MEDS ORDERED: predniSONE 20 MG TABLET PO SCH (09:00)
[2018-08-21] MEDS: MOMETASONE FUROATE 100 mcg Inhaler IH SCH (09:20)
[2018-08-21] MEDS: Multivit/Ca/Min/Fe/FA 1 TAB TABLET PO SCH (09:56)
[2018-08-21] MEDS: Gabapentin 300 MG CAPSULE PO SCH ×2 (09:57→14:51)
[2018-08-21] MEDS: amLODIPine 5 MG TABLET PO SCH (09:57)
[2018-08-21] MEDS: Insulin LISPRO 300 UNITS/3 ML VIAL SQ SCH ×2 (09:57→12:43)
[2018-08-21] MEDS: Acyclovir 200 MG CAPSULE PO SCH (09:57)
--- NOTE | 2018-08-21 15:37 | Discharge Summary ---
- NOTES TO OUTPATIENT PROVIDER Notes to Outpatient Provider: Patient will need follow-up with pulmonology with thin 2-3 weeks. Discharged on prednisone taper. Orders not resulted at time of discharge: Pending orders 08/17/18 16:52 Culture,Blood [BC] Stat 08/17/18 23:18 Culture,Sputum with Gram Stain [RM] Stat 08/18/18 06:00 ECG 12 lead ECG [ECG] AM 0600 Date of Encounter: 08/21/18 Time of Encounter: 15:31 - Discharge Diagnosis (1) COPD with exacerbation Priority: Primary Status: Acute (2) Acute hypercapnic respiratory failure Priority: Primary Status: Acute (3) DVT prophylaxis Priority: Secondary Status: Acute Hospital course: Ms. Brandon is a 63 year old female with past medical history of COPD on home oxygen, asthma, hypertension, arthritis came in with complain of shortness of breath cough and wheezing. Patient was found to have COPD exacerbation and hypercapnic respiratory failure. Patient was started on BiPAP which was gradually tapered off this patient was started on steroids and nebs and antibiotics empirically. Patient gradually improved. She is on theophylline at home which was started, however she did develop tachycardia cardia while getting duo nebs and theophylline. Her theophylline was held and her tachycardia resolved. Patient was qualified for oxygen. She did not qualify for BiPAP. She is otherwise stable to be discharged on steroid taper after which she will continue her home prednisone.. I asked to hold theophylline for 2-3 days before resuming. Patient will need follow-up with pulmonology given her severe COPD. Patient also asked to take a leave from work for a few days. Discharge discussed with: patient, nurse, social work - Time Spent with Patient Total time spent providing and/or coordinating discharge services: Time spent: Greater than 30 minutes - Discharge Medications Prescriptions: New predniSONE [PredniSONE] See Taper PO DAILY 12 Days #54 tablet Continue Tizanidine HCl 2 mg PO Q8H PRN PRN Reason: Muscle Spasm Sertraline [Zoloft] 100 mg PO DAILY Olodaterol HCl [Striverdi Respimat] 2 puff IH DAILY Montelukast [Singulair] 10 mg PO HS Acetylcysteine [N-Ypyyvv-u-Cysteine] 600 mg PO DAILY Lisinopril [Zestril] 10 mg PO DAILY Ipratropium/Albuterol Neb [Duoneb] 3 ml IH Q6HR PRN PRN Reason: Shortness Of Breath Fluticasone Propionate Nasal [Flonase] 1 spr NS DAILY PRN PRN Reason: Allergy Symptoms Mometasone Furoate [Asmanex Hfa] 2 puff IH BID Amlodipine Besylate 10 mg PO DAILY Albuterol Sulfate [Ventolin Hfa] 2 puff IH Q4H PRN PRN Reason: Shortness Of Breath Multivitamin [One-Daily Multi-Vitamin] 1 tab PO DAILY Glucosamine HCl 500 mg PO DAILY Calcium Carbonate [Calcium] 600 mg PO DAILY Gabapentin [Neurontin] 300 mg PO TID Theophylline Anhydrous [Quan-24] 100 mg PO Q12HR Acyclovir [Zovirax] 400 mg PO DAILY predniSONE [PredniSONE] 20 mg PO DAILY #0 Home Medications: Acetylcysteine [P-Mbkung-o-Cysteine] 600 mg PO DAILY 08/17/18 [History] Albuterol Sulfate [Ventolin Hfa] 2 puff IH Q4H PRN 08/17/18 [History] Amlodipine Besylate 10 mg PO DAILY 08/17/18 [History] Calcium Carbonate [Calcium] 600 mg PO DAILY 08/17/18 [History] Fluticasone Propionate Nasal [Flonase] 1 spr NS DAILY PRN 08/17/18 [History] Glucosamine HCl 500 mg PO DAILY 08/17/18 [History] Ipratropium/Albuterol Neb [Duoneb] 3 ml IH Q6HR PRN 08/17/18 [History] Lisinopril [Zestril] 10 mg PO DAILY 08/17/18 [History] Mometasone Furoate [Asmanex Hfa] 2 puff IH BID 08/17/18 [History] Montelukast [Singulair] 10 mg PO HS 08/17/18 [History] Multivitamin [One-Daily Multi-Vitamin] 1 tab PO DAILY 08/17/18 [History] Olodaterol HCl [Striverdi Respimat] 2 puff IH DAILY 08/17/18 [History] Sertraline [Zoloft] 100 mg PO DAILY 08/17/18 [History] Tizanidine HCl 2 mg PO Q8H PRN 08/17/18 [History] Acyclovir [Zovirax] 400 mg PO DAILY 08/18/18 [History] Gabapentin [Neurontin] 300 mg PO TID 08/18/18 [History] Theophylline Anhydrous [Quan-24] 100 mg PO Q12HR 08/18/18 [History] predniSONE [PredniSONE] 20 mg PO DAILY #0 08/21/18 [Rx] predniSONE [PredniSONE] See Taper PO DAILY 12 Days #54 tablet 08/21/18 [Rx] Allergies/Adverse Reactions: Allergy/AdvReac Type Severity Reaction Status Date / Time ondansetron [From Zofran] AdvReac Hives Verified 08/17/18 17:35 oxycodone [From Percocet] AdvReac Hives Verified 08/17/18 17:35 promethazine [From Phenergan] AdvReac Hives Verified 08/17/18 17:35 Date of admission: 08/17/18 23:52 Primary care physician: Hilary Ko CNP Discharging clinician: Kaley San - Constitutional Vitals: Temp Pulse Resp BP Pulse Ox 98.0 F 86 16 145/78 96 08/21/18 07:44 08/21/18 07:44 08/21/18 09:20 08/21/18 07:44 08/21/18 11:50 Exam: General: In no acute distress. Respiratory exam: CTAB. good air entry Cardiovascular exam: RRR, +S1, +S2. no murmur, gallop, rubs. GI/Abdominal exam: Non-tender, Non-distended, soft, no peritoneal signs. Extremities exam: no pedal edema, no calf tenderness Neurological exam: CN II-XII intact, AO X3, no focal deficits. Skin exam: No skin rash - Patient Status Disposition: Home, Self-Care Condition: Fair - Discharge Instructions Instructions: Acute Respiratory Distress Syndrome (DC), Chronic Obstructive Pulmonary Disease (DC) Follow Up With: Hilary Ko CNP [Primary Care Provider] - 08/27/18 3:00 pm Forms: ED Satisfaction Letter - Diet and Activity Activity: increase activity as tolerated
== END 2018-08-21 17:06 | disposition home or self-care (01) | DRG 189 ==
LOC: 2NENU 16:07 → EMEROOARM 16:07 → 2NENU 20:20 → SUATTDRO 23:52
PROVIDERS: ADMIT Internal Medicine; ATTEND Internal Medicine